=== PATIENT | male | born 1960 | race Caucasian/White ===

== ENCOUNTER → 2018-12-10 14:02 | Outpatient (CLI) | payer OTHER, SELFPAY ==
--- NOTE | 2018-12-10 14:45 | DI.MRI.S_ITS ---
PROCEDURE: MR LUMBAR SPINE WO CON INDICATIONS: chronic progressive lower back pain TECHNIQUE: Noncontrast sagittal T1 spin echo and T2 fast echo, sagittal STIR, axial T1 and T2 fast spin echo through the lumbar spine. In cases with scoliosis, additional coronal T2 fast spin echo may be performed. COMPARISON: [facility] [place], YARIEL, SPINE LUMB MIN 4VW, 08/10/2013, 15:49. [facility]B 2 OR 3VW, 07/15/2014, 9:32. FINDINGS: Image quality: Excellent. Alignment and Curvature: There is normal bony alignment. 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 For purposes of this dictation the lumbar type non-rib bearing vertebral bodies will be designated L1-S1 with the last non-rudimentary disc present at S1-S2. Reactive endplate changes noted adjacent to the No acute vertebral body compression fractures. Spinal Cord: Conus medullaris terminates at the L1 disc level. Visualized cord demonstrates normal signal and size. Paraspinous Soft Tissues: No paravertebral masses. L1-L2: Normal appearance. L2-L3: Loss of disc signal. Mild, diffuse disc bulge. No central stenosis. No neural foraminal narrowing. No neural compression. L3-L4: Loss of disc signal and height. Moderate, diffuse disc bulge. Small central disc extrusion. Mild bilateral facet hypertrophy. Moderate narrowing of the central canal. Moderate bilateral neural foraminal narrowing. No neural compression. L4-L5: Loss of disc signal. Moderate, diffuse disc bulge. Mild bilateral facet hypertrophy. Moderate narrowing of the central canal. Moderate right and severe left neural foraminal narrowing with compression of the exiting left L4 nerve root. L5-S1: Loss of disc signal and height. Moderate, diffuse disc bulge. Broad-based right central/right foraminal disc protrusion. Mild bilateral facet hypertrophy. Moderate narrowing of the central canal. Severe right and moderate left neural foraminal narrowing with compression of the exiting right L5 nerve root.. S1-S2: Normal appearance. IMPRESSION: 1. 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 2. Multilevel degenerative disc disease. 3. Multilevel facet arthropathy. 4. Moderate L3-L4 and L4-L5 central canal narrowing. 5. Moderate right and severe left L4-L5 neural foraminal narrowing. Severe right and moderate left L5-S1 neural foraminal narrowing. Moderate bilateral L3-L4 neural foraminal narrowing. 6. Compression of the exiting left L4 nerve root and exiting right L5 nerve root secondary to neural foraminal narrowing. Dictated by: Marily Galvan MD, PhD on 12/10/2018 at 15:00 Approved by: Marily Galvan MD, PhD on 12/10/2018 at 15:11
== END ==
PROVIDERS: PCP Family Medicine; Visit Provider Physical Medicine & Rehabilitation
DX: M51.16 Intervertebral disc disorders with radiculopathy, lumbar region (principal); M51.17 Intervertebral disc disorders with radiculopathy, lumbosacral region; M54.5 Low back pain; M47.27 Other spondylosis with radiculopathy, lumbosacral region; M47.26 Other spondylosis with radiculopathy, lumbar region; M48.061 Spinal stenosis, lumbar region without neurogenic claudication; M48.07 Spinal stenosis, lumbosacral region; G89.29 Other chronic pain
CPT/HCPCS: 72148

== ENCOUNTER 2019-01-14 14:53 | Outpatient (CLI) | payer OTHER, SELFPAY ==
--- NOTE | 2019-01-14 14:55 | DI.RAD.S_ITS ---
PROCEDURE: PAIN L/S TRANSFORAMINAL INJECT INDICATIONS: SPINAL STENOSIS FINDINGS: Fluoroscopic spot filming was performed to verify placement of spinal needles at the L4-L5 level(s), as labeled on the films. Appropriate location(s) of the needle tip(s) was confirmed by injection of iodinated contrast. IMPRESSION: Fluoroscopy for pain management. Dictated by: Liban Macias M.D. on 01/14/2019 at 17:30 Approved by: Liban Macias M.D. on 01/14/2019 at 17:31
[2019-01-14 15:18] VITALS: BP 149/92; PULSE 86; RESP 16; TEMP 36.6; O2SAT 98
[2019-01-14 16:15] VITALS: BP 154/93; PULSE 87; RESP 18; O2SAT 98
[2019-01-14] MEDS: BUPIVACAINE 0.25% (PF) VIAL 2 ML INJ (16:20)
[2019-01-14] MEDS: DEXAMETHASONE 10 MG/ML VIAL 20 MG INJ (16:21)
[2019-01-14] MEDS: BETAMETHASONE 30 MG/5 ML MDV 6 MG INJ (16:21)
[2019-01-14] MEDS: IOPAMIDOL 15 ML VIAL 3 ML INJ (16:21)
[2019-01-14 16:24] VITALS: BP 146/84; PULSE 78; RESP 18; O2SAT 98
[2019-01-14 16:32] VITALS: BP 154/85; PULSE 80; RESP 16; O2SAT 97
--- NOTE | 2019-01-14 16:32 | P.PCN_ITS ---
Procedures Date/Time Date of procedure: 01/14/19 Time of procedure: 16:32 General Procedure description: PREOP DIAGNOSIS 1. FORMAINAL STENOSIS WITH LE SYMPTOMS POST OP DIAGNOSIS 1. FORMAINAL STENOSIS WITH LE SYMPTOMS PROCEDURES 1. FLUOROSCOPICALLY GUIDED CONTRAST CONTROLLED TRANSFORAMINAL EPIDURAL STEROID INJECTION - RIGHT L4/5 TFESI PHYSICIAN: Delmar Sethi DO INDICATIONS: Caleb is referred by Dr. Bal for treatment of Foraminal Stenosis with Right LE Symptoms FINDINGS Foraminal Nerve Root Compression secondary to disc disease and facet hypertrophy DESCRIPTION OF PROCEDURE: Following review of allergy and review of potential side effects and complications, including, but not necessarily limited to, infection, allergic reaction, local tissue breakdown, stroke, temporary or permanent nerve injury, paralysis, and possible , the patient indicated that the patient understood and agreed to proceed. An informed consent document was signed by the patient, witnessed by a nurse, and placed in the patient's chart. Additionally, other treatment options including medications, modalities, and physical therapy were reviewed with the patient. After review of previous anaesthesic history and IV conscious sedation the patient was deemed safe to proceed with todays procedure with IV conscious sedation as ASA class II designation. Safety time-out was performed to confirm patient ID, procedure to be performed and site of procedure. IV sedation was deemed unnecessary and thus was not administered by the RN after DO order, titrated to patient comfort during the course of the procedure while the patient remained responsive to all verbal commands In the prone position following sterile prep and drape of the lumbar region, the Right L4/5 posterior neuroforamen was identified fluoroscopically. The skin was anesthetized via a 25-gauge 1.5-inch needle with 1% lidocaine solution. At this point, a 25-gauge 3.5-inch spinal needle was atraumatically introduced and advanced under fluoroscopic guidance through the posterior Right L4/5 neuroforamen to approximately the anterior aspect of the canal. Depth was confirmed on lateral view. Following negative aspiration, injection of approximately 1.5 cc of Isovue 200 under live fluoroscopy in the AP view confirmed excellent flow along the nerve root, into the epidural space without vascular or intrathecal uptake observed Radiological data, including multiple fluoroscopic views of the lumbosacral spine, reveal a spinal needle at the right L4/5 posterior neuroforamen. Subsequent views show flow of contrast material flowing superiorly and inferiorl y along the nerve root confirming epidural flow. Subsequently, a test dose of 1.5cc of 1% lidocaine solution was administered and patient was observed for two minutes for signs or symptoms of complications, including abdominal pain, shortness of breath, bilateral upper or lower extremity weakness, nausea and vomiting, prior to steroid injection. At this point, a total of 3cc or 20mg of dexamethasone and 6mg of betamethasone was injected without incident. The procedure tolerated the procedure well without signs or symptoms of complications prior to transfer to the recovery area continued monitoring without incident.The patient was then transferred to the recovery area where they were observed for an appropriate time after the injection. The patient reported a VAS score of 7 prior to the procedure and a post- procedure VAS of 0. Total Fluoroscopy Time: 20.9 seconds Total Conscious Sedation Time: 24min POST OP INSTRUCTIONS The patient was provided a Pain Log to continue to record their response to the target-specific procedure prior to follow-up visit with their referring physician. Additionally, specific post-injection care instructions and a contact number to our office were provided if concerns arise regarding possible complications associated with the procedure are suspected. Delmar Sethi DO Complications: none
--- NOTE | 2019-01-14 16:35 | PC.NURSE ---
NO SEDATION MEDS GIVEN DURING PROC. ACCEPTED CARE OF PT IN POST PROC ARE IN STABLE CONDITION. STEADY GAIT NOTED, A&OX4, VSS.
--- NOTE | 2019-01-14 17:03 | PC.NURSE ---
Post procedure note: Patient was not medicated for procedure with sedation. tolerated procedure well. VSS. Able to sit up and transfer independently. Pain level 0/10. Handoff report given to Marine Vasquez RN.
== END 2019-01-14 16:36 | disposition home or self-care (01) ==
LOC: RAD 14:54
PROVIDERS: Family Provider Family Medicine; PCP Family Medicine; Visit Provider Physical Medicine & Rehabilitation
DX: M48.061 Spinal stenosis, lumbar region without neurogenic claudication (principal); M51.16 Intervertebral disc disorders with radiculopathy, lumbar region
CPT/HCPCS: 64483; J0702; J1100; J2250; J3010

== ENCOUNTER → 2023-03-07 06:25 | Outpatient (CLI) | payer OTHER, SELFPAY ==
--- NOTE | 2023-03-07 06:26 | DI.RAD.S_ITS ---
PROCEDURE: XR LUMBAR SPINE MIN 4V INDICATIONS: BACK PAIN TECHNIQUE: 5 views of the lumbar spine were acquired, including bilateral oblique views. COMPARISON: [facility], MR, MR LUMBAR SPINE WO CON, 12/10/2018, 14:32. CR, SPINE LUMB 2 OR 3VW, 07/15/2014, 9:32. CR, SPINE LUMB MIN 4VW, 08/10/2013, 15:49. FINDINGS: Bones: 5 nonrib-bearing vertebrae are present. There is trace anterolisthesis of L4 on L5, trace retrolisthesis of L2 on L3, L3 on L4. Multilevel degenerative disc space narrowing most severe at L4-5, L5-S1. Moderate to severe multilevel foraminal narrowing most severe from L3-4 through L5-S1. No vertebral body compression fractures. No suspicious bony lesions. Soft tissues: Overlying bowel gas pattern is normal. No suspicious soft tissue calcifications. Oblique images: No pars defects. IMPRESSION: Multilevel degenerative changes overall showing progression since 2019. Dictated by: Christin Gurrola M.D. on 03/07/2023 at 14:48 Approved by: Christin Gurrola M.D. on 03/07/2023 at 14:50
== END ==
LOC: RAD 06:26
PROVIDERS: Family Provider Family Medicine; Referring Provider Physical Medicine & Rehabilitation; Visit Provider Physical Medicine & Rehabilitation
DX: M48.061 Spinal stenosis, lumbar region without neurogenic claudication (principal); M47.27 Other spondylosis with radiculopathy, lumbosacral region; M47.26 Other spondylosis with radiculopathy, lumbar region; M51.17 Intervertebral disc disorders with radiculopathy, lumbosacral region; M51.16 Intervertebral disc disorders with radiculopathy, lumbar region
CPT/HCPCS: 72110

== ENCOUNTER 2023-04-24 07:26 | Outpatient (CLI) | payer OTHER, SELFPAY ==
[2023-04-24 07:55] VITALS: BP 133/71; PULSE 70; RESP 18; TEMP 36.9; O2SAT 96
--- NOTE | 2023-04-24 08:00 | DI.RAD.S_ITS ---
PROCEDURE: PAIN L/S TRANSFORAMINAL INJECT INDICATIONS: herniated nucleus pulposus COMPARISON: [facility], , PAIN L/S TRANSFORAMINAL INJECT, 01/14/2019, 16:17. FINDINGS: Fluoroscopic spot filming was performed to verify placement of spinal needles at the right L4-5 level(s), as labeled on the films. Appropriate location(s) of the needle tip(s) was confirmed by injection of iodinated contrast. IMPRESSION: Fluoroscopic guidance for facet injection. Dictated by: Jillian Max M.D. on 04/24/2023 at 15:00 Approved by: Jililan aMx M.D. on 04/24/2023 at 15:01
[2023-04-24 08:24] VITALS: BP 133/91; PULSE 68; RESP 15; O2SAT 99
[2023-04-24 08:29] VITALS: BP 126/74; PULSE 61; RESP 19; O2SAT 99
[2023-04-24] MEDS: iopamidoL 15 ML VIAL 3 ML INJ (08:33)
[2023-04-24 08:34] VITALS: BP 128/78; PULSE 61; RESP 18; O2SAT 100
[2023-04-24] MEDS: BETAMETHASONE 30 MG/5 ML MDV 6 MG INJ (08:34)
[2023-04-24] MEDS: BUPIVACAINE 0.25% (PF) VIAL 2 ML INJ (08:34)
[2023-04-24] MEDS: DEXAMETHASONE 10 MG/ML VIAL INJ (08:34)
[2023-04-24 08:39] VITALS: BP 131/85; PULSE 63; RESP 14; O2SAT 99
[2023-04-24 08:45] VITALS: BP 152/74; PULSE 70; RESP 18; O2SAT 98
--- NOTE | 2023-04-24 08:45 | P.PCN_ITS ---
Date/Time/Diagnoses Date of procedure: 04/24/23 Time of procedure: 08:45 Pre-procedure diagnosis: 1. FORAMINAL STENOSIS WITH LE SYMPTOMS Post-procedure diagnosis: same Procedure Notes Procedure: 1. FLUOROSCOPICALLY GUIDED CONTRAST CONTROLLED TRANSFORAMINAL EPIDURAL STEROID INJECTION - RIGHT L4/5 TFESI Indications: Caleb is referred by Dr. Bal for treatment of Foraminal Stenosis with Right LE Symptoms Physician: Delmar Sethi Total Fluoroscopy time (seconds): 10 Total sedation minutes: 0 Complications: none Procedure in detail & Post-procedure care: FINDINGS Foraminal Nerve Root Compression secondary to disc disease and facet hypertrophy DESCRIPTION OF PROCEDURE Following review of allergy and review of potential side effects and complications, including, but not necessarily limited to, infection, allergic reaction, local tissue breakdown, stroke, temporary or permanent nerve injury, paralysis, and possible , the patient indicated that the patient understood and agreed to proceed. An informed consent document was signed by the patient, witnessed by a nurse, and placed in the patient's chart. Additionally, other treatment options including medications, modalities, and physical therapy were reviewed with the patient. After review of previous anaesthesic history and IV conscious sedation the patient was deemed safe to proceed with today?s procedure with IV conscious sedation as ASA class II designation. Safety time-out was performed to confirm patient ID, procedure to be performed and site of procedure. IV sedation was deemed unnecessary and thus not administered by the RN after DO order, titrated to patient comfort during the course of the procedure while the patient remained responsive to all verbal commands In the prone position following sterile prep and drape of the lumbar region, the right L4/5 posterior neuroforamen was identified fluoroscopically. The skin was anesthetized via a 25-gauge 1.5-inch needle with 1% lidocaine solution. At this point, a 25-gauge 3.5-inch spinal needle was atraumatically introduced and advanced under fluoroscopic guidance through the posterior right L4/5 neuroforamen to approximately the anterior aspect of the canal. Depth was confirmed on lateral view. Following negative aspiration, injection of approximately 1.5cc of Isovue 200 under live fluoroscopy in the AP view confirmed excellent flow along the nerve root, into the epidural space without vascular or intrathecal uptake observed Radiological data, including multiple fluoroscopic views of the lumbosacral spine, reveal a spinal needle at the right L4/5 posterior neuroforamen. Subsequent views show flow of contrast material flowing superiorly and inferiorly along the nerve root confirming epidural flow. Subsequently, a test dose of 1.5 cc of 1% lidocaine solution was administered and patient was observed for two minutes for signs or symptoms of complications, including abdominal pain, shortness of breath, bilateral upper or lower extremity weakness, nausea and vomiting, prior to steroid injection. At this point, a total of 2cc or 10mg of dexamethasone and 6mg of betamethasone was injected without incident. The procedure tolerated the procedure well without signs or symptoms of complications prior to transfer to the recovery area continued monitoring without incident. The patient was then transferred to the recovery area where they were observed for an appropriate time after the injection. The patient reported a VAS score of 7 prior to the procedure and a post- procedure VAS of 0. POST OP INSTRUCTIONS The patient was provided a Pain Log to continue to record their response to the target-specific procedure prior to follow-up visit with their referring physician. Additionally, specific post-injection care instructions and a contact number to our office were provided if concerns arise regarding possible complications associated with the procedure are suspected.
== END 2023-04-24 08:56 | disposition home or self-care (01) ==
LOC: RAD 07:27
PROVIDERS: Family Provider Family Medicine; Referring Provider Physical Medicine & Rehabilitation; Visit Provider Physical Medicine & Rehabilitation
DX: M48.061 Spinal stenosis, lumbar region without neurogenic claudication (principal); M51.16 Intervertebral disc disorders with radiculopathy, lumbar region; M47.26 Other spondylosis with radiculopathy, lumbar region
CPT/HCPCS: 64483; J0702; J1100; J3490

== ENCOUNTER 2023-08-31 10:53 | Emergency (ER) | payer OTHER, SELFPAY ==
[2023-08-31 10:58] VITALS: BP 111/66; PULSE 68; RESP 18; TEMP 36.2; O2SAT 96; BMI 31.9
--- NOTE | 2023-08-31 11:07 | DI.RAD.S_ITS ---
PROCEDURE: XR KNEE RT 3V INDICATIONS: pain/ swelling TECHNIQUE: 3 views of the knee were acquired. COMPARISON: None. FINDINGS: Bones: No fractures or dislocations. Significant lateral femoral tibial compartment joint space narrowing and subchondral sclerosis is seen. Mild patellofemoral compartment osteoarthritis is also noted. No suspicious bony lesions. Soft tissues: Small to moderate suprapatellar joint effusion. No suspicious soft tissue calcifications. IMPRESSION: No acute right knee fracture or dislocation. Moderate lateral femoral tibial compartment osteoarthritis and mild patellofemoral compartment osteoarthritis. Small to moderate suprapatellar joint effusion. Dictated by: Patirce Belcher M.D. on 08/31/2023 at 11:52 Approved by: Patrice Belcher M.D. on 08/31/2023 at 11:52
--- NOTE | 2023-08-31 11:07 | DI.RAD.S_ITS ---
PROCEDURE: XR HIP W PEL IF DONE RT 2V INDICATIONS: pain/injury TECHNIQUE: AP pelvis with lateral view(s) of the right hip(s). COMPARISON: None. FINDINGS: Bones: No fractures or dislocations. Pelvic ring appears intact. Mild right hip joint osteoarthritic changes are seen. No suspicious bony lesions. Soft tissues: The visualized bowel gas pattern is normal. Small calcification adjacent to greater tuberosity of right proximal femur which may indicate calcific tendinitis. IMPRESSION: No acute right hip fracture or dislocation. No evidence of avascular necrosis. Mild right hip joint osteoarthritis and suggestion of calcific tendinitis in distal gluteus tendons. Dictated by: Patrice Belcher M.D. on 08/31/2023 at 11:53 Approved by: Patrice Belcher M.D. on 08/31/2023 at 11:54
--- NOTE | 2023-08-31 11:08 | DI.RAD.S_ITS ---
PROCEDURE: XR ANKLE RT MIN 3V INDICATIONS: pain/swelling TECHNIQUE: 3 views of the ankle were acquired. COMPARISON: None. FINDINGS: Bones: No fractures or dislocations. Ankle mortise is normally aligned. No suspicious bony lesions. Soft tissues: Small tibiotalar joint effusion is seen. Mild ankle soft tissue swelling is also. Achilles tendon appears normal. IMPRESSION: No acute ankle fracture or dislocation. Small joint effusion and mild ankle soft tissue swelling. Ankle mortise is congruent. Dictated by: Patrice Belcher M.D. on 08/31/2023 at 11:54 Approved by: Patrice Belcher M.D. on 08/31/2023 at 11:55
--- NOTE | 2023-08-31 12:34 | ED.LOWEXIN ---
HPI - Extremity Injury (Lower) General Chief Complaint: Extremity Injury, Lower Stated Complaint: Right Leg injury Time Seen by Provider: 08/31/23 11:36 History of Present Illness HPI Narrative: 63-year-old male presents for right leg injury. Yesterday patient was helping to move a trailer when the trailer slipped, pinning his leg at an awkward angle for 15 minutes. Today he was unable to bear any weight on his leg. Pain is most at the knee, but also has pain in his hip and his ankle. Has hydrocodone at home due to chronic pain issues. Is followed by pain management. Related Data Home Medications Medication Instructions Recorded Confirmed hydrochlorothiazide 25 mg tablet 25 mg PO DAILY 11/18/18 06/11/23 hydrocodone 5 mg-acetaminophen 325 1 tab PO BID PRN 11/18/18 06/11/23 mg tablet omeprazole 20 mg capsule,delayed 20 mg PO DAILY 11/18/18 06/11/23 release atorvastatin 10 mg tablet 10 mg PO DAILY 02/19/23 06/11/23 carvedilol 6.25 mg tablet 6.25 mg PO BID 02/19/23 06/11/23 dulaglutide 0.75 mg/0.5 mL 0.75 mg SUBCUT QWEEK 02/19/23 06/11/23 subcutaneous pen injector (Trulicity) lisinopril 20 1 tab PO DAILY 02/19/23 06/11/23 mg-hydrochlorothiazide 25 mg tablet metformin 1,000 mg tablet 1,000 mg PO BID 02/19/23 06/11/23 empagliflozin 25 mg tablet 25 mg PO DAILY 06/11/23 06/11/23 (Jardiance) Allergies Allergy/AdvReac Type Severity Reaction Status Date / Time No Known Drug Allergies Allergy Verified 06/11/23 07:52 Patient History Medical History Tooth abscess Diabetes Herniated nucleus pulposus, L5-S1, right Herniated nucleus pulposus, L3-4 left Lumbar stenosis without neurogenic claudication Lumbosacral spondylosis with radiculopathy Surgical History H/O wrist surgery [place] teeth extracted H/O hemorrhoidectomy History of knee surgery Social History Smoking Status: Former smoker Smoking Status: Former smoker alcohol intake frequency: other Substance Use Type: marijuana Exam Initial Vital Signs Initial Vital Signs: Vital Signs Temperature 97.1 F L 08/31/23 10:58 Pulse Rate 68 08/31/23 10:58 Respiratory Rate 18 08/31/23 10:58 Blood Pressure 111/66 08/31/23 10:58 Pulse Oximetry 96 08/31/23 10:58 Oxygen Delivery Method Room Air 08/31/23 10:58 Const: Awake, alert, no acute distress, nontoxic appearing MSK: No deformity, some swelling right knee, reduced range of motion due to pain, thigh and calf compartments soft, intact pulses Skin: Warm, Dry, intact, no rashes Neuro: AO x3, CN II-XII grossly intact, moves all extremities Course Orders Ordered: ED Orders 08/31/23 11:07 XR hip w pel if done RT 2V Stat XR knee RT 3V Stat 08/31/23 11:08 XR ankle RT min 3V Stat Vital Signs Vital signs: Vital Signs - 8 hr 08/31/23 10:58 Temperature 97.1 F L Pulse Rate 68 Respiratory Rate 18 Blood Pressure 111/66 Pulse Oximetry 96 Oxygen Delivery Method Room Air MDM - Extremity Injury (Lower) MDM Narrative Medical decision making narrative: Well-appearing patient with extremity pain after injury yesterday. Compartments are soft, intact pulses. Patient's pain is primarily in his right knee and states that he was unable to bear weight due to pain in his location. X-ray imaging negative for acute findings, patient may have ligamentous injury, however this would not be seen on x-ray imaging and no MRI is indicated at this time. Patient placed in knee immobilizer, he states he already has crutches at home. He declines additional pain medications stating that he has his hydrocodone at home. Patient was counseled on the importance of orthopedic follow up. Note for work provided. Discharge Plan Departure Patient Disposition: Home Clinical Impression: Knee sprain Instructions: DI for Knee Sprain Activity Restrictions/Additional Instructions: Based on your exam today I suspect a medial knee ligament injury. Wear the knee immobilizer and use the crutches to help you get around. [facility] to follow up with a knee specialist. Continue to take your chronic pain medications as prescribed. You may also use Voltaren gel, which is an lucp-naf-wvxwxiu anti-inflammatory cream, for additional pain relief. Elevate your knee above heart level and apply ice to help decrease swelling and pain. Prescriptions: No Action omeprazole 20 mg capsule,delayed release(DR/EC) 20 mg PO DAILY hydrochlorothiazide 25 mg tablet 25 mg PO DAILY hydrocodone-acetaminophen 5-325 mg tablet 1 tab PO BID PRN metformin 1,000 mg tablet 1,000 mg PO BID carvedilol 6.25 mg tablet 6.25 mg PO BID lisinopril-hydrochlorothiazide 20-25 mg tablet 1 tab PO DAILY atorvastatin 10 mg tablet 10 mg PO DAILY Trulicity 0.75 mg/0.5 mL pen injector 0.75 mg SUBCUT QWEEK Patient Comments: [NO ORIGINAL SIG] Jardiance 25 mg tablet 25 mg PO DAILY Referrals: Miscellaneous,Doctor, MD [Primary Care Provider] - Stand Alone Forms: Patient Portal/API, Work Release Note
[2023-08-31 12:49] VITALS: BP 128/68; PULSE 63; RESP 18; O2SAT 97
== END 2023-08-31 12:51 | disposition home or self-care (01) ==
PROVIDERS: Emergency Provider Emergency Medicine; Family Provider Family Medicine
DX: S83.91XA Sprain of unspecified site of right knee, initial encounter (principal); X50.1XXA Overexertion from prolonged static or awkward postures, initial encounter; Z79.899 Other long term (current) drug therapy
CPT/HCPCS: 73502; 73562; 73610; 99282; 99283

== ENCOUNTER 2023-12-04 08:01 | Outpatient (CLI) | payer OTHER, SELFPAY ==
[2023-12-04] VITALS (9 sets, daily range): BP systolic 126–139; BP diastolic 71–95; PULSE 65–80; RESP 15–20; TEMP 36.4; O2SAT 97–99
--- NOTE | 2023-12-04 08:45 | DI.RAD.S_ITS ---
PROCEDURE: PAIN L INTERLAMINAR/CAUDAL INJ INDICATIONS: SPONDYLOSIS COMPARISON: None. FINDINGS: Fluoroscopic spot filming was performed to verify placement of spinal needles at the right paramedian L4 interlaminar notch level, as labeled on the films. Appropriate location(s) of the needle tip(s) was confirmed by injection of iodinated contrast. IMPRESSION: Dorsal right paramedian interlaminar notch needle tip localization at L4-5. Dictated by: Kyle Steele M.D. on 12/04/2023 at 10:10 Approved by: Kyle Steele M.D. on 12/04/2023 at 10:11
[2023-12-04] MEDS: MIDAZOLAM 2 MG/2 ML VIAL 1 MG IV (08:47)
[2023-12-04] MEDS: DEXAMETHASONE 10 MG/ML VIAL INJ (08:51)
[2023-12-04] MEDS: BUPIVACAINE 0.25% (PF) VIAL 2 ML INJ (08:51)
[2023-12-04] MEDS: iopamidoL 15 ML VIAL 3 ML INJ (08:51)
[2023-12-04] MEDS: BETAMETHASONE 30 MG/5 ML MDV 12 MG INJ (08:52)
--- NOTE | 2023-12-04 09:01 | P.PCN_ITS ---
Date/Time/Diagnoses Date of procedure: 12/04/23 Time of procedure: 09:01 Pre-procedure diagnosis: 1. HNP WITH RADICULAR FEATURES, 2. MULTILEVEL CENTRAL STENOSIS, Post-procedure diagnosis: same Procedure Notes Procedure: 1. FLUOROSCOPICALLY GUIDED CONTRAST CONTROLLED INTERLAMINAR EPIDURAL STEROID INJECTION -L4/5 Indications: Caleb is referred by Dr. Bal for treatment of Bilateral Foraminal Stenosis R>L LE symptoms. Physician: Delmar Sethi Total Fluoroscopy time (seconds): 5 Total sedation minutes: 12 Complications: none Procedure in detail & Post-procedure care: FINDINGS Multilevel Central Spinal Stenosis with Nerve Root Compression DESCRIPTION OF PROCEDURE Fluoroscopically guided, contrast-controlled L4/5 translaminar epidural steroid injection. Following review of allergy and review of potential side effects and complications, including, but not necessarily limited to, infection, allergic reaction, local tissue breakdown, temporary as well as permanent nerve injury, paralysis, stroke and possible , the patient indicated that the patient understood and agreed to proceed. An informed consent document was signed by the patient, witnessed by a nurse, and placed in the patient's chart. Additionally, other treatment options including modalities, medications, and physical therapy were reviewed with the patient. After review of previous anaesthesic history and IV conscious sedation the patient was deemed safe to proceed with today?s procedure with IV conscious sedation as ASA class II designation. Safety time-out was performed to confirm patient ID, procedure to be performed and site of procedure. IV sedation was accomplished with a combination of 1mg of Versed was administered by the RN after DO order, titrated to patient comfort during the course of the procedure while the patient remained responsive to all verbal commands In the prone position, following sterile prep and drape of the lumbar region, the L4/5 translaminar space was identified fluoroscopically. The skin was anesthetized via a 25-gauge, 1.5inch needle with 1% lidocaine solution. At this point, a 22-gauge short bevel spinal needle was atraumatically introduced and advanced under fluoroscopic guidance into the region of the L4/5 translaminar space. Depth was confirmed on lateral view. Radiological data, including multiple fluoroscopic views of the lumbar spine, reveal a spinal needle at the L4/5 translaminar space. Lateral views then show placement of the needle in the epidural space. Subsequent views show contrast material flowing superiorly and inferiorly in the epidural space. No vascular or intrathecal uptake is observed. At this point, using loss of resistance technique with saline and air, the epidural space was entered. This was confirmed following negative aspiration with injection of approximately 1.5cc of Isovue 200, showing excellent epidural flow without vascular or intrathecal uptake. At this point, 1cc of 1% lidocaine solution combined with 3cc or 10mg of dexamethasone and 12mg betamethasone was injected without incident. The patient tolerated the procedure well without signs or symptoms of complications prior to transfer to the recovery area continued monitoring without incident. The patient was then transferred to the recovery area where they were observed for an appropriate period of time after the injection. The patient reported a VAS score of 6 prior to the procedure and a post- procedure VAS of 0. POST OP INSTRUCTIONS The patient was provided a Pain Log to continue to record their response to the target-specific procedure prior to follow-up visit with their referring physician. Additionally, specific post-injection care instructions and a contact number to our office were provided if concerns arise regarding possible complications associated with the procedure are suspected.
== END 2023-12-04 09:21 | disposition home or self-care (01) ==
PROVIDERS: Family Provider Family Medicine; Referring Provider Physical Medicine & Rehabilitation; Visit Provider Physical Medicine & Rehabilitation
DX: M51.16 Intervertebral disc disorders with radiculopathy, lumbar region (principal); M48.061 Spinal stenosis, lumbar region without neurogenic claudication
CPT/HCPCS: 62323; 99152; J0702; J1100; J2250; J3490